=== PATIENT | female | born 1930 | race Caucasian/White ===

== ENCOUNTER → 2018-01-09 | Outpatient (CLI) | payer MEDICARE ==
[~2018-01-09] MED LIST: ASPI-1441 PO; ASPI-1471 PO; CALC500T42 PO; DIOVAN PO; DOC100 PO; EST3 PO; GLUC-307 PO; LEVO25TA56 PO; LEVO50TA86 PO; LOR5/325 PO; MULT-1335 PO; MULT-865 PO; NIT100 PO; OMEP-218 PO; PANT40TA65 PO; PEG4000S17 PO; PHENA200 PO; PREMARIN PO; RANI150C17 PO; SERT-181 PO; SERT-184 PO; VALS320T12 PO; VALS80TA7 PO; VENL37.53 PO; VENL75CA4 PO; [UNRECOGNIZED DRUG - CODE] PO; [UNRECOGNIZED DRUG - OTHER] PO
[2018-01-09 14:45] LABS: PLATELET COUNT, AUTOMATED 233 K/uL (150-450)
== END ==
LOC: LAB 14:11
PROVIDERS: ATTEND Family Medicine
DX: I10 Essential (primary) hypertension (principal); E03.9 Hypothyroidism, unspecified
CPT/HCPCS: 36415; 82310; 82374; 82435; 82565; 82947; 84132; 84295; 84443; 84520; 85025

== ENCOUNTER → 2018-06-06 | Outpatient (CLI) | payer MEDICARE ==
[~2018-06-06] MED LIST changes: +BARIUM SULFATE 176 GM BTL PO ONE; +BARIUM SULFATE 340 GM POWD ONE; +LOSA50TA72 PO; +OMEP40CA48 PO; +RANI-366 PO; -VALS80TA7 PO; +VALS80TA8 PO
--- NOTE | 2018-06-06 16:02 | RADIOLOGY IMAGING REPORT ---
FACILITY: [facility] [place] PATIENT NAME: Zuleyma Marte : 1930 MR: [id number] V: [id number] EXAM DATE: ORDERING PHYSICIAN: ILEANA SHAY TECHNOLOGIST: Location: [facility] Patient: Zuleyma Marte : 1930 Visit/Account:[id number] Date of Sevice: 06/06/2018 Exam type: ESOPHAGRAM History: Dysphasia and GERD Comparison: None. Findings: Double contrast esophagram was performed with thick and thin barium and air contrast. Multiple fluor oscopic spot images were obtained over the hypopharynx cervical and thoracic portions of the esophagu s. There is a moderate impression along the posterior wall the upper cervical esophagus, likely rela mandie to prominent cricopharyngeus muscle. Marked tertiary waves were present throughout the esophagus . There is a small hiatal hernia and mild narrowing at the lower esophageal sphincter. A moderate a mount of gastroesophageal reflux observed. IMPRESSION: 1. Small hiatal hernia with mild narrowing at the lower esophageal sphincter Moderate amount of gastroesophageal reflux Marked tertiary waves were seen throughout the esophagus Prominent impression along the posterior wall the upper cervical esophagus, likely related to a promi nent cricopharyngeus muscle Report Dictated By: Veronica Hernandez MD at 06/06/2018 3:52 PM Report E-Signed By: Veronica Hernandez MD at 06/06/2018 3:57 PM WSN:[id number]
== END ==
LOC: RAD 05-19 02:05
PROVIDERS: ATTEND Otolaryngology
DX: K44.9 Diaphragmatic hernia without obstruction or gangrene (principal); K21.9 Gastro-esophageal reflux disease without esophagitis
CPT/HCPCS: 74220

== ENCOUNTER → 2018-06-22 | Outpatient (CLI) | payer MEDICARE ==
[~2018-06-22] MED LIST changes: -BARIUM SULFATE 176 GM BTL PO ONE; -BARIUM SULFATE 340 GM POWD ONE; +DICL100G39 TOP
[2018-06-22 16:48] LABS: PLATELET COUNT, AUTOMATED 207 K/uL (150-450)
== END ==
LOC: LAB 16:23
PROVIDERS: ATTEND Family Medicine
DX: E03.9 Hypothyroidism, unspecified (principal); N95.1 Menopausal and female climacteric states; R15.9 Full incontinence of feces; I10 Essential (primary) hypertension
CPT/HCPCS: 36415; 82310; 82374; 82435; 82565; 82947; 84132; 84295; 84443; 84520; 85025

== ENCOUNTER → 2018-09-21 | Outpatient (CLI) | payer MEDICARE ==
[~2018-09-21] MED LIST changes: -LOSA50TA72 PO; +LOSA50TA74 PO; +PNEU0.5D3 IM
== END ==
LOC: LAB 16:25
PROVIDERS: ATTEND Family Medicine
DX: E03.9 Hypothyroidism, unspecified (principal)
CPT/HCPCS: 36415; 82310; 82374; 82435; 82565; 82947; 84132; 84295; 84443; 84520

== ENCOUNTER 2018-11-02 11:30 | Outpatient (RCR) | payer MEDICARE ==
[~2018-11-02 11:30] MED LIST changes: -LOSA50TA74 PO; +LOSA50TA80 PO
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
== END 2018-11-02 18:00 | disposition home or self-care (01) ==
LOC: ST 11:30
PROVIDERS: ATTEND Family Medicine
DX: G30.9 Alzheimer's disease, unspecified (principal)